=== PATIENT | female | born 1955 | race Caucasian/White ===

== ENCOUNTER → 2018-04-30 | Outpatient (CLI) | payer OTHER ==
[~2018-04-30] MED LIST: ALEVE220 M1 PO; CALCIUM 600 +1 EAC1 PO; FISH OIL 1,0001 EAC5 PO; GLUCOSAMIN-CHO1 EACH PO; MULTIVITAMINS PO
== END ==
LOC: RAD 14:54
DX: Z12.31 Encounter for screening mammogram for malignant neoplasm of breast (principal); M19.041 Primary osteoarthritis, right hand; M19.042 Primary osteoarthritis, left hand

== ENCOUNTER → 2020-01-26 | Outpatient (CLI) | payer OTHER | LOC: BC 14:04 | DX: Z12.31 Encounter for screening mammogram for malignant neoplasm of breast (principal) ==